=== PATIENT | male | born 1960 | race Caucasian/White ===

== ENCOUNTER 2016-10-27 17:04 | Emergency (ER) | payer BC ==
[2016-10-27] MEDS ORDERED: COREG6.25 MG PO (17:30)
[2016-10-27] MEDS ORDERED: CIPRODEX 0.3%-7.5 ML OT (18:30)
== END 2016-10-27 18:37 | disposition home or self-care (01) ==
LOC: ED 17:04
DX: H93.8X1 Other specified disorders of right ear (principal); F17.200 Nicotine dependence, unspecified, uncomplicated; Z90.89 Acquired absence of other organs

== ENCOUNTER 2019-07-03 15:49 | Emergency (ER) | payer BC ==
[~2019-07-03] VITALS: Ht 193 cm; Wt 99.8 kg
[~2019-07-03 15:49] MED LIST: CIPRODEX 0.3%-7.5 ML OT; COREG6.25 MG PO
[2019-07-03] MEDS ORDERED: CLINDAMYCIN HC300 MG PO (16:17)
== END 2019-07-03 16:39 | disposition home or self-care (01) ==
LOC: ED 15:49
DX: K04.7 Periapical abscess without sinus (principal); K02.9 Dental caries, unspecified; I10 Essential (primary) hypertension; E11.9 Type 2 diabetes mellitus without complications; F17.200 Nicotine dependence, unspecified, uncomplicated

== ENCOUNTER → 2021-01-22 | Outpatient (CLI) | payer BC ==
[~2021-01-22] MED LIST changes: +CLINDAMYCIN HC300 MG PO
== END | disposition home or self-care (01) ==
LOC: COVID19 15:23
PROVIDERS: ATTEND Internal Medicine
DX: U07.1 COVID-19 (principal)

== ENCOUNTER → 2021-07-20 | Outpatient (CLI) | payer BC | END | disposition home or self-care (01) | LOC: COVID19 01:00 | PROVIDERS: ATTEND Internal Medicine | DX: Z20.822 Contact with and (suspected) exposure to COVID-19 (principal) ==